=== PATIENT | female | born 1935 ===

== ENCOUNTER 2017-07-11 08:31 | Outpatient (CLI) | payer MEDICARE ==
--- NOTE | 2017-07-12 00:26 | XRay Report ---
FINAL REPORT EXAM: XR HIP 2-3V LT HISTORY: LEFT HIP PAIN COMPARISON: None available. FINDINGS: AP view of the pelvis and weightbearing views of the left hip obtained. Pelvic ring is intact. Bilateral hip and SI joint spaces are preserved. Minimal osteophyte along the acetabular rims and femoral necks bilaterally. No acute fracture dislocation. 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
== END 2017-07-11 08:32 | disposition home or self-care (01) ==
LOC: SPVIMAG 08:31
PROVIDERS: ATTEND Orthopaedic Surgery Sports Medicine
DX: M16.0 Bilateral primary osteoarthritis of hip (principal)